=== PATIENT | female | born 1990 | race Caucasian/White ===

== ENCOUNTER 2017-11-26 23:07 | Emergency (ER) | payer SELFPAY ==
[~2017-11-26] VITALS: Ht 167.6 cm; Wt 93.1 kg
[~2017-11-26 23:07] MED LIST: ENDOCET 5-3251 EACH PO; IBUPROFEN800 MG PO; Motrin PO
[2017-11-26 23:19] VITALS: BP 124/76
[2017-11-27] MEDS ORDERED: MOTRIN800 MG PO (02:13)
== END 2017-11-27 02:45 | disposition home or self-care (01) ==
LOC: EME 23:07
PROC: 2W3CX1Z Immobilization of Right Lower Arm using Splint (ICD-10-PCS; principal; 2017-11-27)
DX: S63.501A Unspecified sprain of right wrist, initial encounter (principal); W10.8XXA Fall (on) (from) other stairs and steps, initial encounter; Y92.008 Other place in unspecified non-institutional (private) residence as the place of occurrence of the external cause; Z88.2 Allergy status to sulfonamides
CPT/HCPCS: 73110; 73130; 99281; 99284